=== PATIENT | male | born 1960 | race African-American/Black ===

== ENCOUNTER 2017-04-07 15:05 | Inpatient (IN) | payer OTHER ==
[2017-04-07 15:50] VITALS: BMI 29.4
--- NOTE | 2017-04-07 17:24 | HP ---
CIWA Score - CIWA Score Nausea/Vomitin Muscle Tremors: 3 Anxiety: 3 Agitation: 2 Paroxysmal Sweats: 2 Orientation: 0-Oriented Tacttile Disturbances: 2-Mild Itch/Numbness/Burn Auditory Disturbances: 2-Mild Harshness/Frighten Visual Disturbances: 2-Mild Sensitivity Headache: 2-Mild CIWA-Ar Total Score: 21 Admission ROS BHS - HPI Chief Complaint: i need help to stop drinking alcohol Allergies/Adverse Reactions: Allergies Allergy/AdvReac Type Severity Reaction Status Date / Time No Known Allergies Allergy Verified 04/07/17 16:47 History of Present Illness: this 56 years old male with alcohol dependence,seeking help for detox,last treatment in 01/12 [place] syncope alcohol related hypertension on medication nicotine dependence longest period of sobriety 17 years Exam Limitations: No Limitations - Ebola screening Have you traveled outside of the country in the last 21 days: No Have you had contact with anyone from an Ebola affected area: No Have you been sick,other than usual withdrawal symptoms: No - Review of Systems Constitutional: Changes in sleep EENT: reports: Nose Congestion Respiratory: reports: No Symptoms reported Cardiac: reports: No Symptoms Reported GI: reports: Diarrhea, Nausea, Vomiting, Abdominal cramping : reports: No Symptoms Reported Musculoskeletal: reports: Muscle Pain Integumentary: reports: Dryness Neuro: reports: Tremors Endocrine: reports: No Symptoms Reported Hematology: reports: No Symptoms Reported Psychiatric: reports: No Sypmtoms Reported, Judgement Intact, Mood/Affect Appropiate, Orientated x3 Patient History - Patient Medical History Hx Anemia: No Hx Asthma: No Hx Chronic Obstructive Pulmonary Disease (COPD): No Hx Cancer: No Hx Cardiac Disorders: No Hx Hypertension: Yes (on med) Hx Hypercholesterolemia: No Hx Pacemaker: No HX Cerebrovascular Accident: No Hx Seizures: No Hx Dementia: No Hx Diabetes: No Hx Gastrointestinal Disorders: No Hx Liver Disease: No Hx Genitourinary Disorders: No Hx Sexually Transmitted Disorders: No Hx Renal Disease (ESRD): No Hx Thyroid Disease: No Hx Human Immunodeficiency Virus (HIV): No (last 2017 negative) Hx Hepatitis C: No Hx Depression: No Hx Suicide Attempt: No Hx Bipolar Disorder: No Hx Schizophrenia: No Other Medical History: no suicidal,no homicidal - Patient Surgical History Past Surgical History: No Hx Neurologic Surgery: No Hx Cataract Extraction: No Hx Cardiac Surgery: No Hx Lung Surgery: No Hx Breast Surgery: No Hx Breast Biopsy: No Hx Abdominal Surgery: No Hx Appendectomy: No Hx Cholecystectomy: No Hx Genitourinary Surgery: No Hx Section: No Hx Orthopedic Surgery: No Anesthesia Reaction: No - PPD History Previous Implant?: Yes Documented Results: Negative w/o proof - Smoking Cessation Smoking history: Current every day smoker Have you smoked in the past 12 months: Yes Aproximately how many cigarettes per day: 4 Hx Chewing Tobacco Use: No Initiated information on smoking cessation: Yes 'Breaking Loose' booklet given: 04/07/17 - Substance & Tx. History Hx Alcohol Use: Yes Hx Substance Use: No Substance Use Type: Alcohol Hx Substance Use Treatment: Yes - Substances Abused Alcohol Route: Oral Frequency: Daily Amount used: liquor- 1 pint Age of first use: 16 Date of Last Use: 04/07/17 Family Disease History - Family Disease History Family History: Denies Admission Physical Exam [facility] - Vital Signs Vital Signs: Vital Signs - 24 hr 04/07/17 15:39 Temperature 97.2 F L Pulse Rate 91 H Respiratory 20 Rate Blood Pressure 137/78 - Physical General Appearance: Yes: Moderate Distress, Tremorous, Irritable, Sweating, Anxious HEENTM: Yes: Normal ENT Inspection, Normocephalic, DAYANA, Pharynx Normal Respiratory: Yes: Lungs Clear, Normal Breath Sounds, No Respiratory Distress Neck: Yes: Within Normal Limits Breast: Yes: Within Normal Limits Cardiology: Yes: Within Normal Limits, Regular Rhythm, Regular Rate, S1, S2 Abdominal: Yes: Normal Bowel Sounds, Non Tender, Flat, Soft Genitourinary: Yes: Within Normal Limits Back: Yes: Normal Inspection, Muscle Spasm Musculoskeletal: Yes: Within Normal Limits, full range of Motion, Back pain Extremities: Yes: Tremors Neurological: Yes: material reprocessing associate II-XII NML intact, Fully Oriented, Alert, Motor Strength 5/5 Integumentary: Yes: Dry Lymphatic: Yes: Within Normal Limits - Diagnostic (1) Alcohol dependence with uncomplicated withdrawal Current Visit: Yes Status: Acute (2) Alcohol dependence with intoxication Current Visit: Yes Status: Acute (3) Syncope Current Visit: Yes Status: Acute (4) Hypertension Current Visit: Yes Status: Acute (5) Nicotine dependence Current Visit: Yes Status: Acute Cleared for Admission [facility] - Detox or Rehab Detox Regimen/Protocol: Librium BHS Breath Alcohol Content Breath Alcohol Content: 0.169 Urine Drug Screen - Results Drug Screen Negative: No Urine Drug Screen Results: ROBERT-Cocaine
[2017-04-07] MEDS ORDERED: LOPERAMIDE HCL 2 MG CAPSULE PO PRN (17:32)
[2017-04-07] MEDS ORDERED: diphenhydrAMINE HCL 50 MG CAPSULE PO PRN (17:32)
[2017-04-07] MEDS ORDERED: chlordiazePOXIDE HCL 25 MG CAPSULE PO PRN (17:32)
[2017-04-07] MEDS ORDERED: P-EPHED 60MG/TRIPROLIDI 2.5MG TABLET PO PRN (17:32)
[2017-04-07] MEDS ORDERED: MENTHOL/PHENOL 1 EACH UD MM PRN (17:32)
[2017-04-07] MEDS ORDERED: MAGNESIUM CITRATE 300 ML BOTTLE PO PRN (17:32)
[2017-04-07] MEDS ORDERED: guaiFENesin/D-METHORPHAN HB 10 ML UNIT-DOSE CUPS PO PRN (17:32)
[2017-04-07] MEDS ORDERED: MAG HYDROX/AL HYDROX/SIMETH 30 ML UNIT-DOSE CUP PO PRN (17:32)
[2017-04-07] MEDS ORDERED: IBUPROFEN 400 MG TABLET (FP) PO PRN (17:32)
[2017-04-07] MEDS ORDERED: ACETAMINOPHEN 325 MG TABLET (FP) PO PRN (17:32)
[2017-04-07] MEDS ORDERED: MAGNESIUM HYDROX 2400MG/30ML ORAL SUSPENSION 30 ML CUP PO PRN (17:32)
[2017-04-07] MEDS: amLODIPine BESYLATE 5 MG TABLET (FP) PO SCH (18:10)
[2017-04-07] MEDS ORDERED: chlordiazePOXIDE HCL 25 MG CAPSULE PO ONE (18:15)
[2017-04-07 22:24] LABS: URINE APPEARANCE CLEAR; URINE BILIRUBIN NEGATIVE (NEGATIVE); URINE BLOOD NEGATIVE (NEGATIVE); URINE COLOR AMBER; URINE GLUCOSE (UA) 1+ (NEGATIVE); URINE KETONE TRACE (NEGATIVE); URINE LEUK ESTERASE NEGATIVE (NEGATIVE); URINE NITRITE NEGATIVE (NEGATIVE); URINE UROBILINOGEN NEGATIVE mg/dL (0.2-1.0)
[2017-04-07 22:40] LABS: URINE PROTEIN 1+ (NEGATIVE)
[2017-04-07 22:45] LABS: CALCIUM OXALATE CRYSTALS RARE /hpf (NONE SEEN); URINE HYALINE CAST 4 /lpf; URINE MUCUS MANY; URINE WBC 1 /hpf (3-5)
[2017-04-07] MEDS: chlordiazePOXIDE HCL 25 MG CAPSULE PO SCH (22:52)
[2017-04-07] MEDS: THIAMINE HCL 100 MG TABLET (FP) PO SCH (22:53)
[2017-04-08] MEDS: chlordiazePOXIDE HCL 25 MG CAPSULE PO SCH ×3 (05:12→18:05)
--- NOTE | 2017-04-08 09:37 | EKG ---
Test Reason : Blood Pressure : / mmHG Vent. Rate : 079 BPM Atrial Rate : 079 BPM P-R Int : 140 ms QRS Dur : 096 ms QT Int : 374 ms P-R-T Axes : 074 -20 -13 degrees QTc Int : 428 ms NORMAL SINUS RHYTHM MODERATE VOLTAGE CRITERIA FOR LVH, MAY BE NORMAL VARIANT NONSPECIFIC ST ABNORMALITY NO PREVIOUS ECGS AVAILABLE Confirmed by HENRRY VIVAS MD ([id number]) on 04/08/2017 9:37:12 AM Referred By: Confirmed By:HENRRY VIVAS MD
[2017-04-08 10:08] LABS: ALBUMIN 3.4 g/dl (3.4-5.0); ANION GAP 7 (8-16); CALCIUM 8.5 mg/dL (8.5-10.1); CO2 30 mmol/L (21-32); GLUCOSE,RANDOM 116 mg/dL (74-106); SGPT/ALT 61 U/L (12-78)
[2017-04-08] MEDS: amLODIPine BESYLATE 5 MG TABLET (FP) PO SCH (10:09)
[2017-04-08] MEDS: PRENATAL VITAMINS W/ FOLIC ACID TABLET (FP) PO SCH (10:09)
[2017-04-08 10:10] LABS: ALK PHOS 90 U/L (45-117); BILIRUBIN,TOTAL 0.9 mg/dL (0.2-1.0); CREATININE 0.9 mg/dL (0.7-1.3); SGOT/AST 74 U/L (15-37); TOT PROT 6.6 g/dl (6.4-8.2)
[2017-04-08 10:17] LABS: MCH 32.5 pg (25.7-33.7); MCHC 33.2 g/dl (32.0-35.9); MEAN CELL VOLUME 97.9 fl (80-96); MEAN PLT VOLUME 8.3 fl (7.5-11.1); PLATELET COUNT 211 K/MM3 (134-434); RDW 16.4 % (11.9-15.9); WHITE BLOOD COUNT 4.9 K/mm3 (4.0-10.0)
--- NOTE | 2017-04-08 10:21 | PN ---
[facility] CIWA - CIWA Score Nausea/Vomitin-No Nausea/No Vomiting Muscle Tremors: 4-Moderate,w/Arms Extend Anxiety: 3 Agitation: 4-Moderately Restless Paroxysmal Sweats: 3 Orientation: 0-Oriented Tacttile Disturbances: 0-None Auditory Disturbances: 0-None Visual Disturbances: 0-None Headache: 1-Very Mild CIWA-Ar Total Score: 15 BHS Progress Note (SOAP) Subjective: sweats shakes agitation anxiety interrupted sleep Objective: 04/08/17 10:21 Vital Signs Temperature 97.0 F L 04/08/17 10:19 Pulse Rate 82 04/08/17 10:19 Respiratory Rate 18 04/08/17 10:19 Blood Pressure 149/78 04/08/17 10:19 O2 Sat by Pulse Oximetry (%) Laboratory Tests 04/07/17 04/08/17 17:32 07:00 Sodium 140 Potassium 3.8 Chloride 103 Carbon Dioxide 30 Anion Gap 7 L BUN 11 Creatinine 0.9 Creat Clearance w eGFR > 60 Random Glucose 116 H Calcium 8.5 Total Bilirubin 0.9 AST 74 H ALT 61 Alkaline Phosphatase 90 Total Protein 6.6 Albumin 3.4 Urine Color Ana Urine Appearance Clear Urine pH 5.0 Urine Protein 1+ H Urine Glucose (UA) 1+ H Urine Ketones Trace H Urine Blood Negative Urine Nitrite Negative Urine Bilirubin Negative Urine Urobilinogen Negative Ur Leukocyte Esterase Negative Urine RBC None Urine WBC 1 Ur Epithelial Cells Rare Calcium Oxalate Crystal Rare Hyaline Casts 4 Urine Mucus Many labs pending awake/alert ambulating no acute distress Assessment: 04/08/17 10:22 withdrawal sx Plan: continue detox increase fluids labs pending
--- NOTE | 2017-04-08 11:29 | CONSULT ---
[facility] Psychiatric Consult - Data Date of interview: 04/08/17 Admission source: [facility] Identifying data: Readmission to [facility] [place] for this 56 y/o AA male seeking detox treatment on for alcohol dependence.Patient is single,a father of two,homeless,unemployed and supported on food stamps. Substance Abuse History: Discused with the patient in this interview.Mr Dumont confirms this report provided at [facility] : Smoking Cessation. Smoking history: Current every day smoker. Have you smoked in the past 12 months: Yes. Aproximately how many cigarettes per day: 4. Hx Chewing Tobacco Use: No. Initiated information on smoking cessation: Yes. 'Breaking Loose' booklet given : 04/07/17. - Substance & Tx. History. Hx Alcohol Use: Yes. Hx Substance Use : No. Substance Use Type: Alcohol. Hx Substance Use Treatment: Yes. - Substances Abused. Alcohol. Route: Oral. Frequency: Daily. Amount used: liquor- 1 pint. Age of first use: 16. Date of Last Use: 04/07/17 Medical History: Hypertension. Psychiatric History: Patient denies history of psychiatric hospitalizations.Not on psychotropic medications.Mr Dumont reports that he gets counseling at the [facility] (court-mandated).No history of suicide attempts. Physical/Sexual Abuse/Trauma History: Patient is currently on parole (no details offered). Additional Comment: Urine Drug Screen Results: ROBERT-Cocaine.Noted. Mental Status Exam - Mental Status Exam Alert and Oriented to: Time, Place, Person Cognitive Function: Good Patient Appearance: Well Groomed Mood: Hopeful, Euthymic Affect: Appropriate, Normal Range Patient Behavior: Appropriate, Cooperative Speech Pattern: Clear Voice Loudness: Normal Thought Process: Intact, Goal Oriented Thought Disorder: Not Present Hallucinations: Denies Suicidal Ideation: Denies Homicidal Ideation: Denies Insight/Judgement: Poor Sleep: Well Appetite: Good Muscle strength/Tone: Normal Gait/Station: Normal Psychiatric Findings - Problem List ([place] 1, 2,3) (1) Alcohol dependence with uncomplicated withdrawal Current Visit: Yes Status: Acute (2) Nicotine dependence Current Visit: Yes Status: Acute (3) Hypertension Current Visit: Yes Status: Acute - Initial Treatment Plan Initial Treatment Plan: Psychoeducation.Detoxification in progress.Observation.
[2017-04-09] MEDS: THIAMINE HCL 100 MG TABLET (FP) PO SCH ×2 (00:12→23:03)
[2017-04-09] MEDS: chlordiazePOXIDE HCL 25 MG CAPSULE PO SCH ×4 (00:12→17:27)
[2017-04-09] MEDS: PRENATAL VITAMINS W/ FOLIC ACID TABLET (FP) PO SCH (10:05)
[2017-04-09] MEDS: amLODIPine BESYLATE 5 MG TABLET (FP) PO SCH (10:05)
--- NOTE | 2017-04-09 13:42 | PN ---
S CIWA - CIWA Score Nausea/Vomitin-No Nausea/No Vomiting Muscle Tremors: 3 Anxiety: 4-Mod. Anxious/Guarded Agitation: 3 Paroxysmal Sweats: 3 Orientation: 0-Oriented Tacttile Disturbances: 0-None Auditory Disturbances: 0-None Visual Disturbances: 0-None Headache: 0-None Present CIWA-Ar Total Score: 13 BHS Progress Note (SOAP) Subjective: Anxiety,tremors,sweating,interrupted sleep,restless. Objective: 04/09/17 13:41 Vital Signs - 8 hr 04/09/17 04/09/17 06:00 10:00 Temperature 97.1 F L 96.8 F L Pulse Rate 68 76 Respiratory 18 18 Rate Blood Pressure 130/76 138/84 Laboratory Tests 04/07/17 04/08/17 04/08/17 17:32 07:00 07:00 WBC 4.9 RBC 4.38 Hgb 14.2 Hct 42.9 MCV 97.9 H MCH 32.5 MCHC 33.2 RDW 16.4 H Plt Count 211 MPV 8.3 Sodium 140 Potassium 3.8 Chloride 103 Carbon Dioxide 30 Anion Gap 7 L BUN 11 Creatinine 0.9 Creat Clearance w eGFR > 60 Random Glucose 116 H Calcium 8.5 Total Bilirubin 0.9 AST 74 H ALT 61 Alkaline Phosphatase 90 Total Protein 6.6 Albumin 3.4 Urine Color Ana Urine Appearance Clear Urine pH 5.0 Ur Specific [place] >= 1.030 H Urine Protein 1+ H Urine Glucose (UA) 1+ H Urine Ketones Trace H Urine Blood Negative Urine Nitrite Negative Urine Bilirubin Negative Urine Urobilinogen Negative Ur Leukocyte Esterase Negative Urine RBC None Urine WBC 1 Ur Epithelial Cells Rare Calcium Oxalate Crystal Rare Hyaline Casts 4 Urine Mucus Many RPR Titer 04/08/17 07:00 WBC RBC Hgb Hct MCV MCH MCHC RDW Plt Count MPV Sodium Potassium Chloride Carbon Dioxide Anion Gap BUN Creatinine Creat Clearance w eGFR Random Glucose Calcium Total Bilirubin AST ALT Alkaline Phosphatase Total Protein Albumin Urine Color Urine Appearance Urine pH Ur Specific [place] Urine Protein Urine Glucose (UA) Urine Ketones Urine Blood Urine Nitrite Urine Bilirubin Urine Urobilinogen Ur Leukocyte Esterase Urine RBC Urine WBC Ur Epithelial Cells Calcium Oxalate Crystal Hyaline Casts Urine Mucus RPR Titer Nonreactive labs noted Assessment: 04/09/17 13:41 Withdrawal sx. Plan: Continue detox
[2017-04-09] MEDS: chlordiazePOXIDE 5 MG CAPSULE PO SCH (23:03)
[2017-04-10] MEDS: chlordiazePOXIDE 5 MG CAPSULE PO SCH (07:17)
[2017-04-10 10:35] VITALS: BP 126/75; PULSE 69; TEMP 96.1
[2017-04-10] MEDS ORDERED: chlordiazePOXIDE HCL 10 MG CAPSULE PO SCH (23:00)
--- NOTE | 2017-04-11 09:33 | DS ---
[facility] Detox Discharge Summary Admission Date: 04/07/17 Discharge Date: 04/10/17 - History Present History: Alcohol Dependence Pertinent Past History: HTN - Physical Exam Results Vital Signs: Vital Signs Temperature 96.1 F L 04/10/17 10:00 Pulse Rate 69 04/10/17 10:00 Respiratory Rate 18 04/10/17 10:00 Blood Pressure 126/75 04/10/17 10:00 O2 Sat by Pulse Oximetry (%) Pertinent Admission Physical Exam Findings: Withdrawal sx. Laboratory Last Values WBC 4.9 K/mm3 (4.0-10.0) 04/08/17 07:00 RBC 4.38 M/mm3 (4.00-5.60) 04/08/17 07:00 Hgb 14.2 GM/dL (11.7-16.9) 04/08/17 07:00 Hct 42.9 % (35.4-49) 04/08/17 07:00 MCV 97.9 fl (80-96) H 04/08/17 07:00 MCH 32.5 pg (25.7-33.7) 04/08/17 07:00 MCHC 33.2 g/dl (32.0-35.9) 04/08/17 07:00 RDW 16.4 % (11.9-15.9) H 04/08/17 07:00 Plt Count 211 K/MM3 (134-434) 04/08/17 07:00 MPV 8.3 fl (7.5-11.1) 04/08/17 07:00 Sodium 140 mmol/L (136-145) 04/08/17 07:00 Potassium 3.8 mmol/L (3.5-5.1) 04/08/17 07:00 Chloride 103 mmol/L (98-107) 04/08/17 07:00 Carbon Dioxide 30 mmol/L (21-32) 04/08/17 07:00 Anion Gap 7 (8-16) L 04/08/17 07:00 BUN 11 mg/dL (7-18) 04/08/17 07:00 Creatinine 0.9 mg/dL (0.7-1.3) 04/08/17 07:00 Creat Clearance w eGFR > 60 (>60) 04/08/17 07:00 Random Glucose 116 mg/dL (74-106) H 04/08/17 07:00 Calcium 8.5 mg/dL (8.5-10.1) 04/08/17 07:00 Total Bilirubin 0.9 mg/dL (0.2-1.0) 04/08/17 07:00 AST 74 U/L (15-37) H 04/08/17 07:00 ALT 61 U/L (12-78) 04/08/17 07:00 Alkaline Phosphatase 90 U/L (45-117) 04/08/17 07:00 Total Protein 6.6 g/dl (6.4-8.2) 04/08/17 07:00 Albumin 3.4 g/dl (3.4-5.0) 04/08/17 07:00 Urine Color Ana 04/07/17 17:32 Urine Appearance Clear 04/07/17 17:32 Urine pH 5.0 (5.0-8.0) 04/07/17 17:32 Ur Specific [place] >= 1.030 (1.005-1.025) H 04/07/17 17:32 Urine Protein 1+ (NEGATIVE) H 04/07/17 17:32 Urine Glucose (UA) 1+ (NEGATIVE) H 04/07/17 17:32 Urine Ketones Trace (NEGATIVE) H 04/07/17 17:32 Urine Blood Negative (NEGATIVE) 04/07/17 17:32 Urine Nitrite Negative (NEGATIVE) 04/07/17 17:32 Urine Bilirubin Negative (NEGATIVE) 04/07/17 17:32 Urine Urobilinogen Negative mg/dL (0.2-1.0) 04/07/17 17:32 Ur Leukocyte Esterase Negative (NEGATIVE) 04/07/17 17:32 Urine RBC None /hpf (0-3) 04/07/17 17:32 Urine WBC 1 /hpf (3-5) 04/07/17 17:32 Ur Epithelial Cells Rare /hpf (FEW) 04/07/17 17:32 Calcium Oxalate Crystal Rare /hpf (NONE SEEN) 04/07/17 17:32 Hyaline Casts 4 /lpf 04/07/17 17:32 Urine Mucus Many 04/07/17 17:32 RPR Titer Nonreactive (NONREACTIVE) 04/08/17 07:00 lab noted - Treatment Patient has Accepted a Rehab Referral to: [facility] - Medication Discharge Medications: Ambulatory Orders Amlodipine Besylate [Norvasc -] 10 mg PO DAILY 04/07/17 - Diagnosis (1) Alcohol dependence with uncomplicated withdrawal Status: Acute (2) Hypertension Status: Acute Qualifiers: Hypertension type: essential hypertension Qualified Code(s): I10 - Essential (primary) hypertension (3) Nicotine dependence Status: Acute - AMA Did Patient Leave Against Medical Advice: Yes
== END 2017-04-10 10:12 | disposition left against medical advice (07) | DRG 770 ==
LOC: YASAS 15:05 → Y6N 17:05
PROVIDERS: ADMIT Internal Medicine; ATTEND Internal Medicine
PROC: HZ2ZZZZ Detoxification Services for Substance Abuse Treatment (ICD-10-PCS; principal; 2017-04-07)
DX: F10.230 Alcohol dependence with withdrawal, uncomplicated (principal); F17.210 Nicotine dependence, cigarettes, uncomplicated; I10 Essential (primary) hypertension; Z86.79 Personal history of other diseases of the circulatory system
CPT/HCPCS: 36415; 80053; 81003; 81015; 85027; 86593; 93005; 93010

== ENCOUNTER 2017-11-29 14:20 | Inpatient (IN) | payer OTHER ==
[2017-11-29 16:34] VITALS: BMI 28.7
--- NOTE | 2017-11-29 18:04 | HP ---
CIWA Score - CIWA Score Nausea/Vomitin Muscle Tremors: 2 Anxiety: 2 Agitation: 2 Paroxysmal Sweats: 2 Orientation: 3-Disoriented Date>2 days Tacttile Disturbances: 2-Mild Itch/Numbness/Burn Auditory Disturbances: 0-None Visual Disturbances: 0-None Headache: 0-None Present CIWA-Ar Total Score: 16 Admission ROS [facility] - HPI Chief Complaint: alcohol wihtdrawal sx Allergies/Adverse Reactions: Allergies Allergy/AdvReac Type Severity Reaction Status Date / Time No Known Allergies Allergy Verified 11/29/17 16:33 History of Present Illness: 57 yo m with h/o chornic alcoholism requesting inapteint detoxifcation from alcohol becasue of alcohol iwthdrwal sx. patient reports being in ED at [facility] where he gave him benzodiazepines. PMHX anxiety, depression and oinsnia, thirsty. no h/o seizures, no h/o DTs no SI at this time/. pateint intoxicted on admission to [facility] but sober prior to sending to floor. Exam Limitations: No Limitations - Ebola screening Have you traveled outside of the country in the last 21 days: No Have you had contact with anyone from an Ebola affected area: No Have you been sick,other than usual withdrawal symptoms: No Do you have a fever: No - Review of Systems Constitutional: Chills, Diaphoresis, Night Sweats, Changes in sleep, Weight Stable EENT: reports: No Symptoms Reported Respiratory: reports: No Symptoms reported Cardiac: reports: No Symptoms Reported GI: reports: Diarrhea, Nausea, Poor Appetite, Poor Fluid Intake, Vomiting, Indigestion : reports: No Symptoms Reported Musculoskeletal: reports: Back Pain Integumentary: reports: Flushing, Sweating Neuro: reports: Headache, Numbness, Paresthesia, Tingling, Tremors, Weakness Endocrine: reports: Increased Thirst Hematology: reports: No Symptoms Reported Psychiatric: reports: Judgement Intact, Mood/Affect Appropiate, Orientated x3, Anxious, Depressed Other Systems: Reviewed and Negative Patient History - Patient Medical History Hx Anemia: No Hx Asthma: No Hx Chronic Obstructive Pulmonary Disease (COPD): No Hx Cancer: No Hx Cardiac Disorders: No Hx Hypertension: Yes (on med) Hx Hypercholesterolemia: No Hx Pacemaker: No HX Cerebrovascular Accident: No Hx Seizures: No Hx Dementia: No Hx Diabetes: No Hx Gastrointestinal Disorders: No Hx Liver Disease: No Hx Genitourinary Disorders: No Hx Sexually Transmitted Disorders: No Hx Renal Disease (ESRD): No Hx Thyroid Disease: No Hx Human Immunodeficiency Virus (HIV): No (last 2017 negative) Hx Hepatitis C: No Hx Depression: Yes Hx Suicide Attempt: No (no si at this time) Hx Bipolar Disorder: No Hx Schizophrenia: No - Patient Surgical History Past Surgical History: No Hx Neurologic Surgery: No Hx Cataract Extraction: No Hx Cardiac Surgery: No Hx Lung Surgery: No Hx Breast Surgery: No Hx Breast Biopsy: No Hx Abdominal Surgery: No Hx Appendectomy: No Hx Cholecystectomy: No Hx Genitourinary Surgery: No Hx Section: No Hx Orthopedic Surgery: No Anesthesia Reaction: No - PPD History Previous Implant?: Yes Documented Results: Negative w/o proof Date: 04/09/17 PPD to be Administered?: No - Reproductive History Patient is a Female of Child Bearing Age (11 -55 yrs old): No Patient : No - Smoking Cessation Smoking history: Current every day smoker Have you smoked in the past 12 months: Yes Aproximately how many cigarettes per day: 4 Hx Chewing Tobacco Use: No Initiated information on smoking cessation: Yes 'Breaking Loose' booklet given: 11/29/17 - Substance & Tx. History Hx Alcohol Use: Yes Hx Substance Use: No Substance Use Type: Alcohol Hx Substance Use Treatment: Yes ( [facility] detox) - Substances Abused Alcohol Route: Oral Frequency: Daily Amount used: LIQUOR- 3 PINTS Age of first use: 19 Date of Last Use: 11/29/17 Family Disease History - Family Disease History Family History: Denies Admission Physical Exam [facility] - Vital Signs Vital Signs: Vital Signs - 24 hr 11/29/17 16:32 Temperature 97.2 F L Pulse Rate 91 H Respiratory 20 Rate Blood Pressure 160/96 - Physical General Appearance: Yes: No Apparent Distress, Nourished, Appropriately Dressed , Disheveled, Mild Distress, Alcohol on Breath, Tremorous, Irritable, Sweating, Anxious HEENTM: Yes: Within Normal Limits, EOMI, Hearing grossly Normal, Normal ENT Inspection, Normocephalic, Normal Voice, DAYANA, Pharynx Normal Respiratory: Yes: Within Normal Limits, Chest Non-Tender, Lungs Clear, Normal Breath Sounds, No Respiratory Distress, No Accessory Muscle Use Neck: Yes: Within Normal Limits, No masses,lesions,Nodules, Supple, Trachea in good position Breast: Yes: Breast Exam Deferred Cardiology: Yes: Within Normal Limits, Regular Rhythm, Regular Rate, S1, S2 Abdominal: Yes: Within Normal Limits, Normal Bowel Sounds, Non Tender, Flat, Soft Genitourinary: Yes: Within Normal Limits Back: Yes: Within Normal Limits, Normal Inspection Musculoskeletal: Yes: full range of Motion, Gait Steady, Pelvis Stable, Back pain Extremities: Yes: Normal Capillary Refill, Normal Range of Motion, Non-Tender, Tremors Neurological: Yes: personnel analyst II-XII NML intact, Fully Oriented, Alert, Motor Strength 5/5, Normal Response, Depressed Affect Integumentary: Yes: Normal Color, Warm, Diaphoresis, Moist Lymphatic: Yes: Within Normal Limits - Addiitonal Findings: withdrawal sx - hypertensive - Diagnostic (1) Anxiety Current Visit: Yes Status: Acute (2) Dehydration Current Visit: Yes Status: Acute (3) Depression Current Visit: Yes Status: Acute (4) Insomnia Current Visit: Yes Status: Acute (5) Alcohol dependence with intoxication Current Visit: No Status: Acute (6) Alcohol dependence with uncomplicated withdrawal Current Visit: No Status: Acute (7) Hypertension Current Visit: No Status: Acute Qualifiers: Hypertension type: essential hypertension Qualified Code(s): I10 - Essential (primary) hypertension (8) Nicotine dependence Current Visit: No Status: Acute (9) Syncope Current Visit: No Status: Acute BHS Breath Alcohol Content Breath Alcohol Content: 0.238 Urine Drug Screen - Results Drug Screen Negative: No Urine Drug Screen Results: BZO-Benzodiazepines
[2017-11-29] MEDS ORDERED: P-EPHED 60MG/TRIPROLIDI 2.5MG TABLET PO PRN (18:16)
[2017-11-29] MEDS ORDERED: guaiFENesin/D-METHORPHAN HB 10 ML UNIT-DOSE CUPS PO PRN (18:16)
[2017-11-29] MEDS ORDERED: MENTHOL/PHENOL 1 EACH UD MM PRN (18:16)
[2017-11-29] MEDS ORDERED: MAG HYDROX/AL HYDROX/SIMETH 30 ML UNIT-DOSE CUP PO PRN (18:16)
[2017-11-29] MEDS ORDERED: NICOTINE POLACRILEX 2 MG GUM BC PRN (18:16)
[2017-11-29] MEDS ORDERED: IBUPROFEN 400 MG TABLET (FP) PO PRN (18:16)
[2017-11-29] MEDS ORDERED: MAGNESIUM HYDROX 2400MG/30ML ORAL SUSPENSION 30 ML CUP PO PRN (18:16)
[2017-11-29] MEDS ORDERED: LOPERAMIDE HCL 2 MG CAPSULE PO PRN (18:16)
[2017-11-29] MEDS ORDERED: ACETAMINOPHEN 325 MG TABLET (FP) PO PRN (18:16)
[2017-11-29] MEDS ORDERED: chlordiazePOXIDE HCL 25 MG CAPSULE PO PRN (18:16)
[2017-11-29] MEDS ORDERED: MAGNESIUM CITRATE 300 ML BOTTLE PO PRN (18:16)
[2017-11-29] MEDS ORDERED: hydrOXYzine PAMOATE 50 MG CAPSULE (FP) PO PRN (18:16)
[2017-11-29] MEDS: NICOTINE 7 MG/24 HOURS TOPICAL PATCH TD SCH (19:39)
[2017-11-29] MEDS: amLODIPine BESYLATE 5 MG TABLET (FP) PO SCH (19:39)
[2017-11-29] MEDS ORDERED: MELATONIN 5 MG TABLETS PO PRN (22:00)
[2017-11-29] MEDS: THIAMINE HCL 100 MG TABLET (FP) PO SCH (22:36)
[2017-11-29] MEDS: chlordiazePOXIDE HCL 25 MG CAPSULE PO SCH (22:36)
[2017-11-30 04:53] LABS: URINE APPEARANCE CLEAR; URINE BILIRUBIN NEGATIVE (<2.0 mg/dL); URINE BLOOD NEGATIVE (NEGATIVE); URINE COLOR YELLOW; URINE GLUCOSE (UA) 2+ (NEGATIVE); URINE KETONE NEGATIVE (NEGATIVE); URINE LEUK ESTERASE NEGATIVE (NEGATIVE); URINE NITRITE NEGATIVE (NEGATIVE); URINE UROBILINOGEN NEGATIVE mg/dL (0.2-1.0)
[2017-11-30 05:29] LABS: URINE PROTEIN 1+ (NEGATIVE)
[2017-11-30 05:47] LABS: EPI CELLS RARE /HPF (FEW); URINE MUCUS MANY
[2017-11-30] MEDS: chlordiazePOXIDE HCL 25 MG CAPSULE PO SCH ×4 (05:59→22:40)
[2017-11-30] MEDS: PRENATAL VITAMINS W/ FOLIC ACID TABLET (FP) PO SCH (10:05)
[2017-11-30] MEDS: NICOTINE 7 MG/24 HOURS TOPICAL PATCH TD SCH (10:08)
[2017-11-30] MEDS: amLODIPine BESYLATE 5 MG TABLET (FP) PO SCH (10:09)
--- NOTE | 2017-11-30 12:14 | PN ---
[facility] CIWA - CIWA Score Nausea/Vomitin-No Nausea/No Vomiting Muscle Tremors: 4-Moderate,w/Arms Extend Anxiety: 4-Mod. Anxious/Guarded Agitation: 4-Moderately Restless Paroxysmal Sweats: 1-Minimal Palms Moist Orientation: 0-Oriented Tacttile Disturbances: 3-Moderate Itch/Numb/Burn Auditory Disturbances: 0-None Visual Disturbances: 0-None Headache: 0-None Present CIWA-Ar Total Score: 16 BHS Progress Note (SOAP) Subjective: ANXIETY,SWEATS,TREMORS,FATIGUE. Objective: 11/30/17 12:11 Vital Signs Temperature 98.2 F 11/30/17 09:16 Pulse Rate 74 11/30/17 11:00 Respiratory Rate 20 11/30/17 11:00 Blood Pressure 154/94 11/30/17 09:16 O2 Sat by Pulse Oximetry (%) Laboratory Last Values Urine Color Yellow 11/30/17 00:30 Urine Appearance Clear 11/30/17 00:30 Urine pH 7.0 (5.0-8.0) D 11/30/17 00:30 Ur Specific [place] 1.021 (1.001-1.035) 11/30/17 00:30 Urine Protein 1+ (NEGATIVE) H 11/30/17 00:30 Urine Glucose (UA) 2+ (NEGATIVE) H 11/30/17 00:30 Urine Ketones Negative (NEGATIVE) 11/30/17 00:30 Urine Blood Negative (NEGATIVE) 11/30/17 00:30 Urine Nitrite Negative (NEGATIVE) 11/30/17 00:30 Urine Bilirubin Negative (<2.0 mg/dL) 11/30/17 00:30 Urine Urobilinogen Negative mg/dL (0.2-1.0) 11/30/17 00:30 Ur Leukocyte Esterase Negative (NEGATIVE) 11/30/17 00:30 Urine WBC (Auto) 5 /hpf (3-5) 11/30/17 00:30 Urine RBC (Auto) 1 /hpf (0-3) 11/30/17 00:30 Ur Epithelial Cells Rare /HPF (FEW) 11/30/17 00:30 Urine Mucus Many 11/30/17 00:30 Assessment: 11/30/17 12:13 WITHDRAWAL SX Plan: CONTINUE DETOX INCREASE PO FLUIDS
--- NOTE | 2017-11-30 12:26 | CONSULT ---
[facility] Psychiatric Consult - Data Date of interview: 11/30/17 Admission source: [facility] Identifying data: Another admission to [facility] for this 57 y/o AA male seeking detox treatment on for alcohol dependence.Patient is single,a father of two,homeless (resides on [address]),unemployed and supported on Public Assistance. Substance Abuse History: Smoking history: Current every day smoker. Have you smoked in the past 12 months: Yes. Aproximately how many cigarettes per day: 4. Hx Chewing Tobacco Use: No. Initiated information on smoking cessation: Yes. 'Breaking Loose' booklet given: 11/29/17. - Substance & Tx. History. Hx Alcohol Use: Yes. Hx Substance Use: No. Substance Use Type: Alcohol. Hx Substance Use Treatment: Yes ( [facility] detox). - Substances Abused. Alcohol. Route: Oral. Frequency: Daily. Amount used: LIQUOR- 3 PINTS. Age of first use: 19. Date of Last Use: 11/29/17 Medical History: Hypertension. Psychiatric History: Patient denies history of psychiatric hospitalizations.Not on psychotropic medications.No OPD care.Mr Dumont denies history of suicide attempts. Physical/Sexual Abuse/Trauma History: Patient denies. Additional Comment: Urine Drug Screen Results: BZO-Benzodiazepines.Noted. Mental Status Exam - Mental Status Exam Alert and Oriented to: Time, Place, Person Cognitive Function: Good Patient Appearance: Well Groomed Mood: Hopeful, Euthymic Affect: Appropriate, Normal Range Patient Behavior: Cooperative Speech Pattern: Clear Voice Loudness: Normal Thought Process: Intact, Goal Oriented Thought Disorder: Not Present Hallucinations: Denies Suicidal Ideation: Denies Homicidal Ideation: Denies Insight/Judgement: Poor Sleep: Well Appetite: Good Muscle strength/Tone: Normal Gait/Station: Normal Psychiatric Findings - Problem List ([employer] 1, 2,3) (1) Alcohol dependence with uncomplicated withdrawal Current Visit: Yes Status: Acute (2) Nicotine dependence Current Visit: Yes Status: Acute Qualifiers: Nicotine product type: cigarettes Substance use status: in withdrawal Qualified Code(s): F17.213 - Nicotine dependence, cigarettes, with withdrawal - Initial Treatment Plan Initial Treatment Plan: Psychoeducation.Sleep hygiene.Detoxification protocol in effect.Observation.
[2017-11-30] MEDS: THIAMINE HCL 100 MG TABLET (FP) PO SCH (22:40)
[2017-12-01] MEDS: chlordiazePOXIDE HCL 25 MG CAPSULE PO SCH ×3 (05:40→17:45)
[2017-12-01] MEDS: NICOTINE 7 MG/24 HOURS TOPICAL PATCH TD SCH (10:26)
[2017-12-01] MEDS: amLODIPine BESYLATE 5 MG TABLET (FP) PO SCH (10:26)
[2017-12-01] MEDS: PRENATAL VITAMINS W/ FOLIC ACID TABLET (FP) PO SCH (10:26)
[2017-12-01] MEDS ORDERED: ONDANSETRON *ODT* 4 MG TABLET SL PRN (17:44)
--- NOTE | 2017-12-01 17:47 | PN ---
[facility] CIWA - CIWA Score Nausea/Vomitin Muscle Tremors: 3 Anxiety: 4-Mod. Anxious/Guarded Agitation: 2 Paroxysmal Sweats: 1-Minimal Palms Moist Orientation: 0-Oriented Tacttile Disturbances: 2-Mild Itch/Numbness/Burn Auditory Disturbances: 2-Mild Harshness/Frighten Visual Disturbances: 0-None Headache: 0-None Present CIWA-Ar Total Score: 17 [facility] Progress Note (SOAP) Subjective: Nausea, Body Aches, Tremors. Objective: PATIENT A & O X 3, OBSERVED AMBULATING ON UNIT. NO ACUTE DISTRESS. PATIENT DENIES CHEST PAIN. 12/01/17 17:46 Vital Signs Temperature 98.0 F 12/01/17 14:53 Pulse Rate 89 12/01/17 14:53 Respiratory Rate 18 12/01/17 14:53 Blood Pressure 130/84 12/01/17 14:53 O2 Sat by Pulse Oximetry (%) Laboratory Tests 11/30/17 00:30 Urine Color Yellow Urine Appearance Clear Urine pH 7.0 D Ur Specific [place] 1.021 Urine Protein 1+ H Urine Glucose (UA) 2+ H Urine Ketones Negative Urine Blood Negative Urine Nitrite Negative Urine Bilirubin Negative Urine Urobilinogen Negative Ur Leukocyte Esterase Negative Urine WBC (Auto) 5 Urine RBC (Auto) 1 Ur Epithelial Cells Rare Urine Mucus Many UA RESULTS NOTED. CBC, CMP, RPR RESULTS PENDING. Assessment: 12/01/17 17:46 WITHDRAWAL SYMPTOMS. Plan: CONTINUE DETOX.
[2017-12-01] MEDS: THIAMINE HCL 100 MG TABLET (FP) PO SCH (23:06)
[2017-12-01] MEDS: chlordiazePOXIDE 5 MG CAPSULE PO SCH (23:06)
[2017-12-02] MEDS: chlordiazePOXIDE 5 MG CAPSULE PO SCH ×3 (05:58→17:37)
[2017-12-02] MEDS: PRENATAL VITAMINS W/ FOLIC ACID TABLET (FP) PO SCH (10:14)
[2017-12-02] MEDS: amLODIPine BESYLATE 5 MG TABLET (FP) PO SCH (10:14)
[2017-12-02] MEDS: NICOTINE 7 MG/24 HOURS TOPICAL PATCH TD SCH (10:16)
[2017-12-02 10:17] LABS: BASO % 0.6 % (0-2.0); EOS % 4.2 % (0-4.5); HEMATOCRIT 42.7 % (35.4-49); HEMOGLOBIN 14.3 GM/dL (11.7-16.9); LYMPH % 36.7 % (8-40); MCH 31.7 pg (25.7-33.7); MCHC 33.4 g/dl (32.0-35.9); MEAN CELL VOLUME 94.8 fl (80-96); MEAN PLT VOLUME 8.9 fl (7.5-11.1); MONO % 8.9 % (3.8-10.2); NEUT % 49.6 % (42.8-82.8); PLATELET COUNT 177 K/MM3 (134-434); RBC 4.51 M/mm3 (4.00-5.60); RDW 14.7 % (11.9-15.9); WHITE BLOOD COUNT 5.7 K/mm3 (4.0-10.0)
--- NOTE | 2017-12-02 10:46 | PN ---
[facility] Progress Note (SOAP) Subjective: Body Aches, Tremors. Objective: PATIENT A & O X 3. NO ACUTE DISTRESS. 12/02/17 10:44 Vital Signs Temperature 96.6 F L 12/02/17 09:18 Pulse Rate 94 H 12/02/17 09:18 Respiratory Rate 20 12/02/17 09:18 Blood Pressure 107/73 12/02/17 09:18 O2 Sat by Pulse Oximetry (%) Laboratory Tests 11/30/17 12/02/17 00:30 07:00 WBC 5.7 RBC 4.51 Hgb 14.3 Hct 42.7 MCV 94.8 MCH 31.7 MCHC 33.4 RDW 14.7 D Plt Count 177 MPV 8.9 Neutrophils % 49.6 Lymphocytes % 36.7 Monocytes % 8.9 Eosinophils % 4.2 Basophils % 0.6 Urine Color Yellow Urine Appearance Clear Urine pH 7.0 D Ur Specific [place] 1.021 Urine Protein 1+ H Urine Glucose (UA) 2+ H Urine Ketones Negative Urine Blood Negative Urine Nitrite Negative Urine Bilirubin Negative Urine Urobilinogen Negative Ur Leukocyte Esterase Negative Urine WBC (Auto) 5 Urine RBC (Auto) 1 Ur Epithelial Cells Rare Urine Mucus Many LABS NOTED. CMP, RPR NOT DONE ON ADMISSION; RE-ORDERED. 12/02/17 10:46 Assessment: 12/02/17 10:44 WITHDRAWAL SYMPTOMS. Plan: CONTINUE DETOX.
[2017-12-02 14:09] LABS: CHLORIDE 102 mmol/L (98-107); POTASSIUM 3.8 mmol/L (3.5-5.1); SODIUM 140 mmol/L (136-145)
[2017-12-02 14:17] LABS: ALBUMIN 3.4 g/dl (3.4-5.0); ALK PHOS 116 U/L (45-117); ANION GAP 10 (8-16); BILIRUBIN,TOTAL 0.6 mg/dL (0.2-1.0); BLOOD UREA NITROGEN 16 mg/dL (7-18); CO2 28 mmol/L (21-32); CREATININE 1.1 mg/dL (0.7-1.3); GLUCOSE,RANDOM 116 mg/dL (74-106); SGOT/AST 31 U/L (15-37); SGPT/ALT 31 U/L (12-78); TOT PROT 6.9 g/dl (6.4-8.2)
[2017-12-02 22:22] VITALS: TEMP 96.9
[2017-12-02] MEDS: THIAMINE HCL 100 MG TABLET (FP) PO SCH (23:14)
[2017-12-02] MEDS: chlordiazePOXIDE HCL 10 MG CAPSULE PO SCH (23:14)
[2017-12-03] MEDS: chlordiazePOXIDE HCL 10 MG CAPSULE PO SCH (05:11)
[2017-12-03 06:30] VITALS: BP 126/82; PULSE 76
--- NOTE | 2017-12-03 16:31 | PN ---
S Progress Note (SOAP) Subjective: Patient denies any current Detox symptoms and reports that he feels well overall. Objective: PATIENT A & O X 3, OBSERVED AMBULATING ON UNIT. NO ACUTE DISTRESS. 12/03/17 16:30 Vital Signs Temperature 96.9 F L 12/03/17 06:30 Pulse Rate 76 12/03/17 06:30 Respiratory Rate 18 12/03/17 06:30 Blood Pressure 126/82 12/03/17 06:30 O2 Sat by Pulse Oximetry (%) Laboratory Tests 11/30/17 12/02/17 12/02/17 00:30 07:00 11:30 WBC 5.7 RBC 4.51 Hgb 14.3 Hct 42.7 MCV 94.8 MCH 31.7 MCHC 33.4 RDW 14.7 D Plt Count 177 MPV 8.9 Neutrophils % 49.6 Lymphocytes % 36.7 Monocytes % 8.9 Eosinophils % 4.2 Basophils % 0.6 Sodium 140 Potassium 3.8 Chloride 102 Carbon Dioxide 28 Anion Gap 10 BUN 16 D Creatinine 1.1 D Creat Clearance w eGFR > 60 Random Glucose 116 H Calcium 9.0 Total Bilirubin 0.6 D AST 31 D ALT 31 D Alkaline Phosphatase 116 D Total Protein 6.9 Albumin 3.4 Urine Color Yellow Urine Appearance Clear Urine pH 7.0 D Ur Specific [place] 1.021 Urine Protein 1+ H Urine Glucose (UA) 2+ H Urine Ketones Negative Urine Blood Negative Urine Nitrite Negative Urine Bilirubin Negative Urine Urobilinogen Negative Ur Leukocyte Esterase Negative Urine WBC (Auto) 5 Urine RBC (Auto) 1 Ur Epithelial Cells Rare Urine Mucus Many RPR Titer 12/02/17 11:30 WBC RBC Hgb Hct MCV MCH MCHC RDW Plt Count MPV Neutrophils % Lymphocytes % Monocytes % Eosinophils % Basophils % Sodium Potassium Chloride Carbon Dioxide Anion Gap BUN Creatinine Creat Clearance w eGFR Random Glucose Calcium Total Bilirubin AST ALT Alkaline Phosphatase Total Protein Albumin Urine Color Urine Appearance Urine pH Ur Specific [place] Urine Protein Urine Glucose (UA) Urine Ketones Urine Blood Urine Nitrite Urine Bilirubin Urine Urobilinogen Ur Leukocyte Esterase Urine WBC (Auto) Urine RBC (Auto) Ur Epithelial Cells Urine Mucus RPR Titer Nonreactive LABS NOTED. Assessment: 12/03/17 16:30 COMPLETION OF DETOX REGIMEN. Plan: PATIENT SCHEDULED FOR DISCHARGE FROM DETOX TODAY. PATIENT WILL RETURN TO [facility] [place] FOR AFTERCARE.
--- NOTE | 2017-12-03 16:35 | DS ---
[facility] Detox Discharge Summary Admission Date: 11/29/17 Discharge Date: 12/03/17 - History Present History: Alcohol Dependence Additional Comments: PATIENT WILL RETURN TO [facility] [place], [place] FOR AFTERCARE. PATIENT WAS DISCHARGED FROM DETOX UNIT IN STABLE MEDICAL CONDITION. Pertinent Past History: HTN, Insomnia, Anxiety, Depression, Dehydration, Nicotine Dependence, Syncope. - Physical Exam Results Vital Signs: Vital Signs Temperature 96.9 F L 12/03/17 06:30 Pulse Rate 76 12/03/17 06:30 Respiratory Rate 18 12/03/17 06:30 Blood Pressure 126/82 12/03/17 06:30 O2 Sat by Pulse Oximetry (%) Pertinent Admission Physical Exam Findings: WITHDRAWAL SYMPTOMS. Laboratory Tests 11/30/17 12/02/17 12/02/17 00:30 07:00 11:30 WBC 5.7 RBC 4.51 Hgb 14.3 Hct 42.7 MCV 94.8 MCH 31.7 MCHC 33.4 RDW 14.7 D Plt Count 177 MPV 8.9 Neutrophils % 49.6 Lymphocytes % 36.7 Monocytes % 8.9 Eosinophils % 4.2 Basophils % 0.6 Sodium 140 Potassium 3.8 Chloride 102 Carbon Dioxide 28 Anion Gap 10 BUN 16 D Creatinine 1.1 D Creat Clearance w eGFR > 60 Random Glucose 116 H Calcium 9.0 Total Bilirubin 0.6 D AST 31 D ALT 31 D Alkaline Phosphatase 116 D Total Protein 6.9 Albumin 3.4 Urine Color Yellow Urine Appearance Clear Urine pH 7.0 D Ur Specific [place] 1.021 Urine Protein 1+ H Urine Glucose (UA) 2+ H Urine Ketones Negative Urine Blood Negative Urine Nitrite Negative Urine Bilirubin Negative Urine Urobilinogen Negative Ur Leukocyte Esterase Negative Urine WBC (Auto) 5 Urine RBC (Auto) 1 Ur Epithelial Cells Rare Urine Mucus Many RPR Titer 12/02/17 11:30 WBC RBC Hgb Hct MCV MCH MCHC RDW Plt Count MPV Neutrophils % Lymphocytes % Monocytes % Eosinophils % Basophils % Sodium Potassium Chloride Carbon Dioxide Anion Gap BUN Creatinine Creat Clearance w eGFR Random Glucose Calcium Total Bilirubin AST ALT Alkaline Phosphatase Total Protein Albumin Urine Color Urine Appearance Urine pH Ur Specific [place] Urine Protein Urine Glucose (UA) Urine Ketones Urine Blood Urine Nitrite Urine Bilirubin Urine Urobilinogen Ur Leukocyte Esterase Urine WBC (Auto) Urine RBC (Auto) Ur Epithelial Cells Urine Mucus RPR Titer Nonreactive LABS NOTED. - Treatment Hospital Course: Detox Protocol Followed, Detoxed Safely, Responded well, Discharged Condition Good Patient has Accepted a Rehab Referral to: PT TO RETURN TO [facility] [place], [place], [place] - Medication Discharge Medications: Ambulatory Orders Amlodipine Besylate [Norvasc -] 10 mg PO DAILY 04/07/17 - Diagnosis (1) Alcohol dependence with intoxication Status: Acute Qualifiers: Complication of substance-induced condition: uncomplicated Qualified Code(s ): F10.220 - Alcohol dependence with intoxication, uncomplicated (2) Alcohol dependence with uncomplicated withdrawal Status: Acute (3) Anxiety Status: Acute (4) Dehydration Status: Acute (5) Depression Status: Acute Qualifiers: Depression Type: unspecified Qualified Code(s): F32.9 - Major depressive disorder, single episode, unspecified (6) Hypertension Status: Acute Qualifiers: Hypertension type: essential hypertension Qualified Code(s): I10 - Essential (primary) hypertension (7) Insomnia Status: Acute Qualifiers: Insomnia type: unspecified Qualified Code(s): G47.00 - Insomnia, unspecified (8) Nicotine dependence Status: Acute Qualifiers: Nicotine product type: cigarettes Substance use status: in withdrawal Qualified Code(s): F17.213 - Nicotine dependence, cigarettes, with withdrawal (9) Syncope Status: Acute Qualifiers: Syncope type: unspecified Qualified Code(s): R55 - Syncope and collapse - AMA Did Patient Leave Against Medical Advice: No
== END 2017-12-03 08:54 | disposition home or self-care (01) | DRG 775 ==
LOC: YASAS 14:20 → Y3N 17:44
PROVIDERS: ADMIT Internal Medicine; ATTEND Internal Medicine
PROC: HZ2ZZZZ Detoxification Services for Substance Abuse Treatment (ICD-10-PCS; principal; 2017-11-29)
DX: F10.230 Alcohol dependence with withdrawal, uncomplicated (principal); F17.213 Nicotine dependence, cigarettes, with withdrawal; F32.9 Major depressive disorder, single episode, unspecified; F41.9 Anxiety disorder, unspecified; G47.00 Insomnia, unspecified; I10 Essential (primary) hypertension; R55 Syncope and collapse
CPT/HCPCS: 36415; 80053; 81003; 81015; 85025; 86593